=== PATIENT | female | born 1990 | race Caucasian/White ===

== ENCOUNTER 2019-03-25 10:01 | Outpatient (CLI) | payer OTHER ==
--- NOTE | 2019-03-25 10:32 | ULT ---
Gallbladder ultrasound: Multiple grayscale images of right upper quadrant obtained according to protocol. INDICATION: Pain FINDINGS: Liver: Normal Gallbladder: Cholelithiasis. Gallbladder wall: Contracted gallbladder limiting assessment. Allan's Sign: Negative Common bile duct is normal. Ascites: None There is incidental note of hydronephrosis, and a small cyst of the right kidney. IMPRESSION: Cholelithiasis. Contracted gallbladder. Mild right hydronephrosis, and right renal cyst.
== END 2019-03-25 10:02 | disposition home or self-care (01) ==
LOC: BICULT 10:01
PROVIDERS: ATTEND Obstetrics & Gynecology
DX: R10.11 Right upper quadrant pain (principal); K80.20 Calculus of gallbladder without cholecystitis without obstruction; K82.8 Other specified diseases of gallbladder; N28.1 Cyst of kidney, acquired; N13.30 Unspecified hydronephrosis
CPT/HCPCS: 76705

== ENCOUNTER 2019-05-02 16:11 | Inpatient (IN) | payer OTHER ==
[~2019-05-02 16:11] MED LIST: Bupivacaine 0.25% HCL 30 ML VIAL ONE
[2019-05-02] MEDS ORDERED: hydrALAZINE 20 MG/ML VIAL SLOW IVP PRN ×3 (16:33→23:49)
[2019-05-02 16:56] VITALS: BMI 34.7
[2019-05-02] MEDS ORDERED: Acetaminophen 500 MG TAB PO PRN (17:26)
[2019-05-02] MEDS ORDERED: Ibuprofen 800 MG TAB PO PRN (17:26)
[2019-05-02] MEDS ORDERED: Lidocaine 1% (PF) 30 ML VIAL SC PRN (17:26)
[2019-05-02] MEDS ORDERED: Butorphanol Tartrate 1 MG/ML VIAL SLOW IVP PRN (17:26)
[2019-05-02] MEDS ORDERED: Ondansetron PF 4 MG/2 ML Vial IVP PRN ×3 (17:26→23:49)
[2019-05-02] MEDS ORDERED: NS / Oxytocin 40 units/1000ml 1,000 ML IV PRN (17:26)
[2019-05-02] MEDS ORDERED: Promethazine HCl 25 MG/ML VIAL IM PRN ×3 (17:26→23:49)
[2019-05-02] MEDS ORDERED: NS w/ Oxytocin 10 units 500 ML IV SCH (17:30)
--- NOTE | 2019-05-02 17:35 | PDOC.FPROB ---
FMR OB H&P: HPI - History of Present Illness Chief Complaint: Contractions Indentification: 28 yo @ 40.5 History of Present Illness: 28 yo @ 40.5 presents for painful; contractions every 7-10 minutes. Pt reports contractions started at approx 3 today and increasing in frequency in strength. Report pos movement, no LOF or vag bleeding. Reports mucous discharge throughout the day today. 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 Pap 2019 - Surgical History Sx History: 1 prior CS - Social History Social History: Denies alcohol tobacco and drug use - Family History Family History: Denies FMR OB H&P: Medications - Current Home Medications: Medication Instructions Recorded Confirmed Type Famotidine [Pepcid] 20 mg PO DAILY 05/02/19 05/02/19 History Vitamin 1 tab PO DAILY 05/02/19 05/02/19 History Allergies/Adverse Reactions: Allergies Allergy/AdvReac Type Severity Reaction Status Date / Time No Known Allergies Allergy Unverified 05/02/19 16:52 R OB H&P: ROS - Review of Systems General: denies: fever/chills, fatigue Eyes: denies: vision changes, scotomas Cardiovascular: denies: chest pain, edema Respiratory: denies: congestion, shortness of breath Gastrointestinal: denies: abdominal pain, cramping, nausea, vomiting, diarrhea, constipation, bright red blood Genitourinary (Female): reports: contractions. denies: vaginal discharge, vaginal pain, vaginal pressure Neurologic: denies: syncope, seizures Integumentary: denies: itching Psychological: denies: depression, anxiety FMR OB H&P: Vital Signs - Maternal Vital signs: Vital Signs - First Documented Temp Pulse Resp BP Pulse Ox 98.4 F 94 18 121/82 100 05/02/19 16:33 05/02/19 16:33 05/02/19 16:33 05/02/19 16:33 05/02/19 16:33 - Heart Tones Baseline: 140 Variability: moderate Acceleration: present Deceleration: early Category: category 1 Point contractions every: 7 minutes FMR OB H&P: Physical Exam - Physical Exam General: NAD, awake, alert and oriented HEENT: normocephalic and atraumatic, PERRLA, EOMI Neck: trachea midline, no LAD Heart: RRR, normal S1/S2, no murmurs/rubs/gallops, no edema General: CTAB, no respiratory distress, good air movement, no rales/rhonchi, no wheezing, no retractions Abdomen: soft, gravid, non-tender Musculoskeletal: FROM in all four extremities Neurological: no focal deficit Skin: no rash Psychiatric: normal mood and affect - Pelvic Exam Vulva: normal hair distribution, no lesions, no discharge, no blood SVE: /- Sharp score: 8 Membranes: Intact Presentation: Vertex Estimated Weight: 7 lbs FMR OB H&P: A/P - Problem List (1) Term Current Visit: Yes Status: Acute Code(s): Z34.90 - ENCNTR FOR SUPRVSN OF NORMAL , UNSP, UNSP TRIMESTER (2) Hx successful (vaginal after ), currently Current Visit: Yes Status: Acute Code(s): O34.219 - MATERNAL CARE FOR UNSP TYPE SCAR FROM PREVIOUS DEL Disposition: Stable, admit to l&d. TOLAC. 1) TIUP: - cervical exam /- mid position, soft - Sharp 8 - will admit to l&d - FHTs 140s pos accels and early decelerations present - Pt wants epidural 2) Prior , wants TOLAC - admit to l&d, favorable cervix Discussion: Date/Time: 05/02/19 166 This H&P was discussed with Dr. Medina who agrees with the above documentation and plan.
[2019-05-02] MEDS: Lactated Ringer's 1,000 ML IV SCH ×2 (18:00→18:59)
[2019-05-02 18:15] LABS: Hemoglobin 12.4 g/dL (12.0-16.0); Mean Corpuscular HGB CONC 33.4 g/dL (32.0-36.0); Mean Corpuscular Hemoglobin 27.7 pg (27.0-31.0); Mean Corpuscular Volume 83.1 fL (78.0-98.0); Mean Platelet Volume 8.1 fL (7.4-10.4); Platelet Count 195 thou/uL (130-400); RBC Distribution Width 14.6 % (11.5-14.5); Red Blood Cell (RBC) Count 4.46 mill/uL (4.20-5.40); White Blood Cell (WBC) Count 9.7 thou/uL (4.8-10.8)
[2019-05-02] MEDS ORDERED: Fentanyl 4 mcg/Bup 0.1% Cadd 100 ML ONE (18:39)
[2019-05-02 18:56] LABS: HBSAg Index 0.19 S/CO (0-0.99); Hep B Surf Ag Non-Reactive S/CO (NonReactive); Syphilis Antibody Nonreactive (Nonreactive); Syphilis Antibody Index 0.03 S/CO (<1.00 Non-Reactive)
[2019-05-02] MEDS ORDERED: Lactated Ringer's 500 ML IV PRN (19:01)
[2019-05-02] MEDS ORDERED: Acetaminophen 325 MG TAB PO PRN (19:01)
[2019-05-02] MEDS ORDERED: Naloxone HCl 0.4 mg/ml Vial IVP PRN ×2 (19:01)
[2019-05-02] MEDS ORDERED: diphenhydrAMINE 50 MG/ML VIAL IVP PRN (19:01)
[2019-05-02] MEDS ORDERED: ePHEDrine/0.9% NaCl/PF SYRINGE 50 mg/10 ml SLOW IVP PRN (19:01)
[2019-05-02] MEDS ORDERED: Communication Order-Pharmacy FS SCH (19:15)
[2019-05-02] MEDS ORDERED: Fentanyl 4 mcg/Bupivacaine 0.1% Cassette 100 ML EPIDURAL SCH (19:15)
--- NOTE | 2019-05-02 23:08 | PDOC.OPDEL ---
OB Operative/Delivery Note Delivery Dr/Surgeon: [facility] Pre-Delivery Diagnosis: active labor Procedure/Post Delivery Dx: spontaneous vaginal delivery Weeks gestation: 40 Anesthesia: epidural - Findings A Sex: male - 1 min: 8 - 5 min: 9 - Additional Findings/Plan Placenta delivered: spontaneous Repaired Obstetrical Laceration: 1st degree Estimated blood loss: 100 Post delivery plan: routine recovery
[2019-05-02] MEDS ORDERED: Preparation H Ointment 57 gram tube RC PRN (23:49)
[2019-05-02] MEDS ORDERED: Benzocaine-Menthol 82.5 ML CAN TOP PRN (23:49)
[2019-05-02] MEDS ORDERED: HYDROcodone/Acetaminophen 5/325 mg Tablet PO PRN (23:49)
[2019-05-02] MEDS ORDERED: Milk Of Magnesia 30 ML UDCUP PO PRN (23:49)
[2019-05-02] MEDS ORDERED: NS / Oxytocin 40 units/1000ml 1,000 ML IV SCH (23:49)
[2019-05-02] MEDS ORDERED: Lanolin Ointment 7 GM TUBE TOP PRN (23:49)
[2019-05-02] MEDS ORDERED: diphenhydrAMINE 25 MG CAP PO PRN (23:49)
[2019-05-02] MEDS ORDERED: Bisacodyl 10 MG SUPP PR PRN (23:49)
[2019-05-02] MEDS ORDERED: Zolpidem Tartrate 5 MG TAB PO PRN (23:49)
[2019-05-03] MEDS: Ibuprofen 800 MG TAB PO SCH ×3 (05:12→21:05)
[2019-05-03] MEDS: HYDROcodone/Acetaminophen 5/325 mg Tablet PO PRN ×4 (05:13→19:48)
--- NOTE | 2019-05-03 07:22 | PRG ---
DATE OF SERVICE: 05/03/2019 day #1 note. TIME OF SERVICE: 7:05. SUBJECTIVE: The patient is resting comfortably approximately 8 hours status post successful . The patient is G3, P3 with uncomplicated delivery of male , 6 pounds 13 ounces, 8 and 9 Apgars. OBJECTIVE: LUNGS: Clear to auscultation bilaterally. HEART: Regular rhythm. ABDOMEN: Soft, nontender. No rebound or guarding. Normal fundus. Normal lochia. EXTREMITIES: No clubbing, cyanosis, or edema. VITAL SIGNS: Temperature 98.0, pulse 67, respirations 18, blood pressure 106/59. IMPRESSION: Doing well, status post , day #0 to 1. PLAN: Routine care. Discharge home in a.m. of 05/04. Job ID: [id number]
--- NOTE | 2019-05-03 08:09 | PDOC.PP ---
Post Progress Note Post Day #: 1 Subjective: doing well, nursing well PO intake tolerated: yes Flatus: yes Ambulation: yes Vital Signs (12 hours) Temp Pulse Resp BP BP Pulse Ox 05/03/19 04:50 98.0 F 67 18 106/59 L 97 05/03/19 03:25 98.0 F 69 18 109/58 L 05/03/19 02:25 97.9 F 69 18 111/66 05/03/19 01:25 97.7 F 66 18 111/60 99 Weight Weight 184 lb - Physical Examination General: NAD Respiratory: non-labored breathing Abdominal: no distention Fundus firm & at: below umb Neurological: no gross focal deficits Psychiatric: A&Ox3, normal affect Result Diagrams: 05/02/19 18:02 Additional Labs: Post Labs Blood Type O POSITIVE 05/02/19 19:46 Hep Bs Antigen Non-Reactive S/CO (NonReactive) 05/02/19 18:02 (1) Vaginal after delivery Code(s): O34.219 - MATERNAL CARE FOR UNSP TYPE SCAR FROM PREVIOUS DEL Status: Acute - Assessment/Plan PPD1 sp , doing well, plan on DC tomorrow.
[2019-05-03] MEDS ORDERED: Adacel (T-DAP) 0.5 ML SYRINGE IM ONE (09:00)
[2019-05-03] MEDS: Famotidine 20 MG TAB PO SCH (09:19)
[2019-05-03] MEDS: Prenatal Vitamin 1 TAB PO SCH (09:19)
[2019-05-03] MEDS: Docusate Calcium (SURFAK) 240 MG CAP PO SCH ×2 (09:19→21:05)
[2019-05-04] MEDS: Famotidine 20 MG TAB PO SCH (00:03)
[2019-05-04] MEDS: HYDROcodone/Acetaminophen 5/325 mg Tablet PO PRN ×2 (02:44→11:01)
[2019-05-04] MEDS: Ibuprofen 800 MG TAB PO SCH (06:15)
[2019-05-04 08:31] VITALS: BP 130/90; TEMP 97.7
[2019-05-04] MEDS: Docusate Calcium (SURFAK) 240 MG CAP PO SCH (08:53)
[2019-05-04] MEDS: Prenatal Vitamin 1 TAB PO SCH (08:53)
--- NOTE | 2019-05-04 11:17 | PDOC.PP ---
Post Progress Note Post Day #: 2 Subjective: PT in NICU and not seen. No complaints per RN. Vital Signs (12 hours) Temp Pulse Resp BP Pulse Ox 05/04/19 08:30 97.7 F 98 20 130/90 100 Weight Weight 184 lb Result Diagrams: 05/02/19 18:02 Additional Labs: Post Labs Blood Type O POSITIVE 05/02/19 19:46 Hep Bs Antigen Non-Reactive S/CO (NonReactive) 05/02/19 18:02 (1) Vaginal after delivery Code(s): O34.219 - MATERNAL CARE FOR UNSP TYPE SCAR FROM PREVIOUS DEL Status: Acute - Assessment/Plan PPD2, pt not seen as she was in NICU w baby. Plans made to return to see/ examine however baby is being emergently transferred to [place]. Pt request DC now.
== END 2019-05-04 13:50 | disposition home or self-care (01) | DRG 807 ==
LOC: L&D/OP 16:11 → L&D 17:31 → 3SW 05-03 01:34
PROVIDERS: ADMIT Obstetrics & Gynecology; ATTEND Obstetrics & Gynecology
PROC: 0HQ9XZZ Repair Perineum Skin, External Approach (ICD-10-PCS; principal; 2019-05-02)
PROC: 10E0XZZ Delivery of Products of Conception, External Approach (ICD-10-PCS; 2019-05-02)
DX: O34.219 Maternal care for unspecified type scar from previous cesarean delivery (principal); Z37.0 Single live birth; O70.0 First degree perineal laceration during delivery; Z3A.40 40 weeks gestation of pregnancy
CPT/HCPCS: 36415; 51702; 85027; 86780; 86850; 86900; 86901; 87340; 99285; S0020